=== PATIENT | female | born 2000 | race Caucasian/White ===

== ENCOUNTER 2022-01-25 15:13 | Outpatient (CLI) | payer OTHER, SELFPAY ==
[2022-01-25 17:55] LABS: Chloride* 103 mmol/L (96-114); Potassium* 4.3 mmol/L (3.6-5.1); Sodium* 137 mmol/L (135-149)
[2022-01-25 17:57] LABS: Creatinine* 0.9 mg/dL (0.5-1.5); Estimated Glomerular Filt Rate 94 ml/min
[2022-01-25 17:58] LABS: Blood Urea Nitrogen* 13 mg/dL (5-24); Calcium* 9.3 mg/dL (8.4-10.6); Carbon Dioxide* 22 mmol/L (20-32); Glucose* 77 mg/dL (60-115)
[2022-01-25 18:29] LABS: TSH With Reflex to FT4* 0.977 uIU/mL (0.270-4.200)
== END 2022-01-25 15:14 | disposition home or self-care (01) ==
PROVIDERS: PCP Family Medicine; Visit Provider Family Medicine
DX: R53.83 Other fatigue (principal)
CPT/HCPCS: 80048; 84443

== ENCOUNTER 2022-05-04 15:56 | Outpatient (CLI) | payer OTHER, SELFPAY ==
[2022-05-04 23:41] LABS: Chlamydia DNA Amplified* NOT DETECTED (No Detected); GC DNA Amplified* NOT DETECTED (No Detected)
== END 2022-05-04 15:57 | disposition home or self-care (01) ==
LOC: NFLDUCREF 15:56
PROVIDERS: PCP Family Medicine; Visit Provider Nurse Practitioner Family
DX: R39.9 Unspecified symptoms and signs involving the genitourinary system (principal); R35.0 Frequency of micturition
CPT/HCPCS: 87086; 87186; 87491; 87591

== ENCOUNTER 2023-06-20 09:58 | Emergency (ER) | payer OTHER, SELFPAY ==
[2023-06-20 10:00] VITALS: BP 115/64; PULSE 77; RESP 18; TEMP 36.6; O2SAT 99; BMI 19.8
--- NOTE | 2023-06-20 10:13 | ED_ITS ---
HPI - General Adult General Chief complaint: Abdominal Pain Stated complaint: abdominal pain Time Seen by Provider: 06/20/23 10:11 History of Present Illness HPI narrative: Patient is a 23-year-old female with a history of irritable bowel syndrome ADD, who is on control patch, presents with abdominal pain for an hour to today that is been quite severe and cramping. She has had just a little bit us vaginal spotting and it is time she expects her menstrual cycle. She has a hist ory of dysmenorrhea, this seems a little bit more advanced than it has been but it seems to be crampy in her low back her anterior abdomen. She has had no fever chills, no dysuria frequency no constipation diarrhea. Patient denies chest pain shortness of breath, bleeding or clotting problems. She has not missed any the patch she is also on a ADD medication. She felt well up until a couple hours ago. She typically takes 3 Advil and get some improvement with her dysmenorrhea. Related Data Home Medications Medication Instructions Recorded Confirmed norelgestromin 150 mcg-e.estradiol 1 patch transdermal QWEEK 01/25/22 05/23/23 35 mcg/24 hr weekly transderm patch (Xulane) Previous Rx's Medication Instructions Recorded dextroamphetamine-amphetamine 20 20 mg PO QDAY #30 tabs 06/01/23 mg tablet ketorolac 10 mg tablet 10 mg PO Q8H PRN pain #10 tabs 06/20/23 Allergies Allergy/AdvReac Type Severity Reaction Status Date / Time No Known Drug Allergies Allergy Verified 05/23/23 13:31 Review of Systems Status of ROS: Reports: 6 or more systems reviewed and unremarkable except as noted in History and below PFSH PFS Medical History History of methicillin resistant Staphylococcus aureus infection (02/03/11) ?Z86.14 - Personal history of Methicillin resistant Staphylococcus aureus infection (ICD-10) Social History Smoking Status: Never smoker Exam Narrative: Exam Narrative: Objective vital signs are unremarkable, she is afebrile Alert orient x3 in mild distress HEENT is unremarkable patient alert orient x3 Neck is supple Pulse regular Abdomen benign soft no masses or peritonitis no right lower quadrant pain negative CVA tenderness Extremities are no edema neurologic nonfocal Const: Vital Signs, click to edit/add: Vital Signs - 24 hr 06/20/23 10:00 Temperature 97.9 F Pulse Rate [Right Pulse Oximeter] 77 Respiratory Rate 18 Blood Pressure [Ri ght Upper Arm] 115/64 Pulse Oximetry 99 Oxygen Delivery Me thod Room Air Course Vital Signs Vital signs: Initial Vital Signs Temperature 97.9 F 06/20/23 10:00 Temperature Source Temporal Artery Scan 06/20/23 10:00 Pulse Rate 77 06/20/23 10:00 Respiratory Rate 18 06/20/23 10:00 Blood Pressure 115/64 06/20/23 10:00 Blood Pressure Mean 81 06/20/23 10:00 Blood Pressure Position Sitting 06/20/23 10:00 Pulse Oximetry 99 06/20/23 10:00 Oxygen Delivery Method Room Air 06/20/23 10:00 Vital Signs Temperature 97.9 F 06/20/23 10:00 Pulse Rate 77 06/20/23 10:00 Respiratory Rate 18 06/20/23 10:00 Blood Pressure 115/64 06/20/23 10:00 Pulse Oximetry 99 06/20/23 10:00 Oxygen Delivery Method Room Air 06/20/23 10:00 Temperature 97.9 F 06/20/23 10:00 Pulse Rate 77 06/20/23 10:00 Respiratory Rate 18 06/20/23 10:00 Blood Pressure 115/64 06/20/23 10:00 Pulse Oximetry 99 06/20/23 10:00 Oxygen Delivery Method Room Air 06/20/23 10:00 Medications Administered Medications: Discontinued Medications Generic Name Dose Route Start Last Admin Trade Name Freq PRN Reason Stop Dose Admin Sodium Chloride 1,000 mls @ 6,000 mls/hr 06/20/23 10:15 06/20/23 11:11 0.9 % Sodium Chloride 1000 Ml IV 06/20/23 10:24 Infused .Q10M STORM Infusion Ketorolac Tromethamine 30 mg 06/20/23 10:11 06/20/23 10:34 Ketorolac 30 Mg/Ml Inj IVP 06/20/23 10:12 30 mg ONCE ONE Administration Lorazepam 1 mg 06/20/23 10:11 06/20/23 10:35 Lorazepam 2 Mg/Ml Inj IVP 06/20/23 10:12 1 mg ONCE ONE Administration Medical Decision Making MDM Narrative Medical decision making narrative: 23-year-old white female with on a control patch with couple hour history of severe dysmenorrhea. Patient is due for her menstrual cycle now she denies has not mentioned any of her patches. She has significant dysmenorrhea today she has had this in the past she describes cramping her lower abdomen and back. At this point I think will give her an IV IV fluid, IV Toradol and some Ativan for muscle relaxation and will check labs , a test, and observe her response. I do not think imaging would be appropriate given it has been such a short duration. Will see how she improves the medication and disposition pending her clinical situation. Addendum 11:02 a.m.. Patient feels markedly better symptoms are resolved with Toradol and Ativan. She got some IV fluid as well. Her lab studies look reassuring her white count is normal, CRP is negative. test is negative. At this point I think we can lower go home I think this is likely dysmenorrhea, need observe abdominal pain for evolution or changes. I will send her home with some Toradol as her test is negative. Recommend recheck with regular doctor within next few days that she has a history of pretty significant cramps with menstruation and this may be worth looking at further. Return if problems concerns difficulty thank Lab Data Labs: Lab Results 06/20/23 Range/Units 10:20 WBC 6.63 (4.50-11.00) K/uL RBC 4.16 (4.00-5.20) m/uL Hgb 12.9 (12.0-16.0) gm/dL Hct 38.5 (33.0-51.0) % MCV 93 (80-100) fL MCH 31 (26-34) pg MCHC 34 (32-36) gm/dL RDW Coeff of Rudy 13.0 (11.5-15.5) % Plt Count 162 (140-440) K/uL Neut % (Auto) 57.1 (42.0-72.0) % Lymph % (Auto) 32.1 (20-44) % [place] % (Auto) 6.5 (0.0-11.0) % Eos % (Auto) 3.6 (0.0-7.0) % Baso % (Auto) 0.5 (0.0-3.0) % Neut # (Auto) 3.79 (1.7-7.0) K/uL Lymph # (Auto) 2.13 (0.90-2.90) K/uL [place] # (Auto) 0.40 (0.00-0.90) K/UL Eos # (Auto) 0.24 (0.00-0.50) K/uL Baso # (Auto) 0.03 (0.00-0.30) K/uL Abs Immat Gran (auto) 0.01 (0.00-0.30) K/uL Imm/Tot Granulo (auto) 0.2 % Sodium 139 (135-149) mmol/L Potassium 3.6 (3.6-5.1) mmol/L Chloride 108 (96-114) mmol/L Carbon Dioxide 21 (20-32) mmol/L Anion Gap 10 (7-15) mEq/L BUN 6 (5-24) mg/dL Creatinine 0.6 (0.5-1.5) mg/dL Estimated Creat Clear 136.91 Estimated GFR 130 ml/min Glucose 119 H (60-115) mg/dL Calcium 8.9 (8.4-10.6) mg/dL C-Reactive Protein < 0.5 L (0.5-1.0) mg/dL Amylase 81 (18-89) U/L HCG, Qual Negative (Negative) Discharge Plan Discharge Clinical Impression: ADD (attention deficit disorder), Dysmenorrhea, Irritable bowel syndrome Patient Disposition: Home w/ Parent or Adult Condition: Improved Additional Instructions: Light activity, diet as tolerated, continue home medications, would also recommend you take ibuprofen 3 tablets 3 times a day for the next couple of days. May use Tylenol as well, warm baths as needed. Follow up with her primary care doctor within the next couple of weeks to discuss your situation. Activity Level: Light activity Discharge Diet: Regular Prescriptions: New ketorolac 10 mg tablet 10 mg PO Q8H PRN (Reason: pain) Qty: 10 0RF No Action Xulane 150-35 mcg/24 hr patch weekly 1 patch transdermal QWEEK Rx Instructions: apply once weekly for 3 weeks of a 4-week cycle dextroamphetamine-amphetamine 20 mg tablet 20 mg PO QDAY Qty: 30 0RF Follow Up/Referrals: Vic Mills MD [Primary Care Provider] - Stand Alone Forms: GrabInbox Info Instructions
[2023-06-20] MEDS: KETOROLAC 30 MG/ML inj IVP (10:34)
[2023-06-20] MEDS: LORazepam 2 MG/ML inj 1 MG IVP (10:35)
[2023-06-20] MEDS: 0.9 % SODIUM CHLORIDE 1000 ml 1,000 ML 6000 ML IV (10:35)
[2023-06-20 10:37] LABS: Basophils Absolute Auto 0.03 K/uL (0.00-0.30); Basophils Percent Auto 0.5 % (0.0-3.0); Eosinophils Absolute Auto 0.24 K/uL (0.00-0.50); Eosinophils Percent Auto 3.6 % (0.0-7.0); Hematocrit 38.5 % (33.0-51.0); Hemoglobin* 12.9 gm/dL (12.0-16.0); Immature Granulocytes Abs Auto 0.01 K/uL (0.00-0.30); Immature Granulocytes Pct Auto 0.2 %; Lymphocytes Absolute Auto 2.13 K/uL (0.90-2.90); Lymphocytes Percent Auto 32.1 % (20-44); Mean Corpuscular HGB Conc 34 gm/dL (32-36); Mean Corpuscular Hemoglobin 31 pg (26-34); Mean Corpuscular Volume 93 fL (80-100); Monocytes Percent Auto 6.5 % (0.0-11.0); Neutrophils Absolute Auto 3.79 K/uL (1.7-7.0); Neutrophils Percent Auto 57.1 % (42.0-72.0); Platelet Count* 162 K/uL (140-440); Red Blood Count 4.16 m/uL (4.00-5.20); Slide Review Reflex No; White Blood Count* 6.63 K/uL (4.50-11.00)
[2023-06-20 10:47] LABS: Chloride* 108 mmol/L (96-114); Sodium* 139 mmol/L (135-149)
[2023-06-20 10:48] LABS: Potassium* 3.6 mmol/L (3.6-5.1)
[2023-06-20 10:50] LABS: Amylase* 81 U/L (18-89); Anion Gap 10 mEq/L (7-15); Carbon Dioxide* 21 mmol/L (20-32); HCG Qualitative Serum* Negative (Negative)
[2023-06-20 10:51] LABS: Blood Urea Nitrogen* 6 mg/dL (5-24); Calcium* 8.9 mg/dL (8.4-10.6); Creatinine* 0.6 mg/dL (0.5-1.5); Est. Creatinine Clearance* 136.91; Estimated Glomerular Filt Rate 130 ml/min; Glucose* 119 mg/dL (60-115)
[2023-06-20 10:55] LABS: C Reactive Protein* < 0.5 mg/dL (0.5-1.0)
== END 2023-06-20 11:17 | disposition home or self-care (01) ==
PROVIDERS: Emergency Provider Family Medicine; PCP Family Medicine
DX: F98.8 Other specified behavioral and emotional disorders with onset usually occurring in childhood and adolescence (principal); N94.6 Dysmenorrhea, unspecified; K58.9 Irritable bowel syndrome, unspecified
CPT/HCPCS: 36415; 80048; 82150; 84703; 85025; 86140; 96374; 96375; 99284; J1885; J2060; J7030